=== PATIENT | male | born 1950 | race Caucasian/White ===

== ENCOUNTER 2017-10-07 13:35 | Outpatient (CLI) | payer MEDICARE | END 2017-10-07 13:36 | disposition home or self-care (01) | LOC: BICMRI 13:35 | PROVIDERS: ATTEND Family Medicine | DX: M51.16 Intervertebral disc disorders with radiculopathy, lumbar region (principal); M51.87 Other intervertebral disc disorders, lumbosacral region; M48.061 Spinal stenosis, lumbar region without neurogenic claudication; M99.83 Other biomechanical lesions of lumbar region | CPT/HCPCS: 72148 ==

== ENCOUNTER 2017-12-20 11:15 | Outpatient (CLI) | payer MEDICARE ==
[2017-12-20 12:36] LABS: Prothrombin Time 13.3 SEC (12.0-14.7)
[2017-12-20 12:37] LABS: PTT 28.1 SEC (22.9-36.1)
[2017-12-20 12:38] LABS: Hemoglobin 14.5 g/dL (14.0-18.0); Mean Corpuscular HGB CONC 33.6 g/dL (32.0-36.0); Mean Corpuscular Hemoglobin 31.7 pg (27.0-31.0); Mean Corpuscular Volume 94.3 fL (78.0-98.0); Mean Platelet Volume 6.7 fL (7.4-10.4); Platelet Count 132 thou/uL (130-400); RBC Distribution Width 12.3 % (11.5-14.5); Red Blood Cell (RBC) Count 4.57 mill/uL (4.70-6.10); White Blood Cell (WBC) Count 16.4 thou/uL (4.8-10.8)
[2017-12-20 12:57] LABS: Anion Gap 10 mmol/L (10-20); BUN (Urea Nitrogen) 14 mg/dL (8.4-25.7); Calc. Creatinine Clearance 0 mL/min (70-130); Carbon Dioxide 25 mmol/L (23-31); Chloride 107 mmol/L (98-107); Estimated GFR-MDRD 72; Glucose 98 mg/dL (80-115); Sodium 138 mmol/L (136-145)
--- NOTE | 2017-12-21 12:05 | EKG ---
Test Reason : Blood Pressure : / mmHG Vent. Rate : 076 BPM Atrial Rate : 076 BPM P-R Int : 154 ms QRS Dur : 078 ms QT Int : 414 ms P-R-T Axes : 051 023 031 degrees QTc Int : 465 ms Normal sinus rhythm Normal ECG When compared with ECG of 07-JUN-2012 16:32, No significant change was found Confirmed by SARAH WILDE ([id number]) on 12/21/2017 12:05:17 PM Referred By: MICHEAL Confirmed By:SARAH WILDE
== END 2017-12-20 11:16 | disposition home or self-care (01) ==
LOC: LABBT 11:15
PROVIDERS: ATTEND Surgery
DX: Z01.812 Encounter for preprocedural laboratory examination (principal); M51.16 Intervertebral disc disorders with radiculopathy, lumbar region
CPT/HCPCS: 80048; 85027; 85610; 85730; 93005; 93010

== ENCOUNTER 2017-12-27 11:44 | Day surgery (SDC) | payer MEDICARE ==
[2017-12-20 11:35] VITALS: BMI 29.1
[2017-12-27] MEDS ORDERED: CEFAZOLIN/Water 2 GM/20 ML SYRINGE ONE (12:28)
[2017-12-27] MEDS ORDERED: Glycopyrrolate 0.2 MG/ML 5 ML SYRINGE ONE (13:50)
[2017-12-27] MEDS ORDERED: ePHEDrine/0.9% NaCl/PF SYRINGE 50 mg/10 ml ONE (13:50)
[2017-12-27] MEDS ORDERED: Ondansetron HCl/PF 4 MG/2 ML Vial ONE (13:50)
[2017-12-27] MEDS ORDERED: Lidocaine 1% PF 5 ML VIAL ONE (13:50)
[2017-12-27] MEDS ORDERED: PROPOFOL 200 MG/20 ML VIAL ONE (13:50)
[2017-12-27] MEDS ORDERED: PHENYLEPHRINE-NS 100 MCG/ML 10 ML SYRINGE ONE (13:50)
[2017-12-27] MEDS ORDERED: Thrombin 5000 UNITS/5 ML VIAL ONE (14:14)
[2017-12-27] MEDS ORDERED: Bacitracin Zinc Ointment 30 gm TUBE ONE (14:14)
[2017-12-27] MEDS ORDERED: Sodium Chloride 0.9% 10 ML ONE (14:14)
[2017-12-27] MEDS ORDERED: Midazolam HCl 2 mg/2 ml Vial ONE (15:16)
[2017-12-27] MEDS ORDERED: Fentanyl 100 MCG/2 ML VIAL ONE ×7 (15:24→21:21)
[2017-12-27] MEDS ORDERED: Promethazine HCl 25 MG/ML VIAL IM PRN ×2 (18:18→18:22)
[2017-12-27] MEDS ORDERED: Mag-Al 1200 mg/1200 mg/30 ML UDCUP PO PRN (18:18)
[2017-12-27] MEDS ORDERED: tiZANidine HCl 4 MG TAB PO PRN (18:18)
[2017-12-27] MEDS ORDERED: Acetaminophen 325 MG TAB PO PRN (18:18)
[2017-12-27] MEDS ORDERED: Bisacodyl 10 MG SUPP PR PRN (18:18)
[2017-12-27] MEDS ORDERED: Fleet Enema 133 ML BOT PR PRN (18:18)
[2017-12-27] MEDS ORDERED: traMADol HCl 50 MG TAB PO PRN (18:18)
[2017-12-27] MEDS ORDERED: Acetaminophen/Codeine 30-300mg Tablet PO PRN (18:18)
[2017-12-27] MEDS ORDERED: Milk Of Magnesia 30 ML UDCUP PO PRN (18:18)
[2017-12-27] MEDS ORDERED: Loratadine 10 MG TAB PO PRN (18:20)
[2017-12-27] MEDS ORDERED: Promethazine HCl 25 MG/ML VIAL SLOW IVP PRN (18:22)
[2017-12-27] MEDS ORDERED: HYDROmorphone 2 MG/ML VIAL SLOW IVP PRN (18:22)
[2017-12-27] MEDS ORDERED: Ondansetron HCl/PF 4 MG/2 ML Vial IVP PRN (18:22)
[2017-12-27] MEDS ORDERED: Allopurinol 300 MG TAB PO SCH (21:00)
[2017-12-27] MEDS ORDERED: DULoxetine 30 MG CAP PO SCH (21:00)
[2017-12-27] MEDS ORDERED: Tamsulosin HCl 0.4 MG CAP PO SCH (21:00)
[2017-12-27] MEDS: Sodium Chloride 0.9% 1,000 ML IV SCH (22:43)
[2017-12-27] MEDS: CEFAZOLIN/Water 2 GM/20 ML SYRINGE SLOW IVP SCH (23:04)
--- NOTE | 2017-12-27 23:09 | OP ---
OR: 12 WOUND: Type 1 wound. SURGEON: Juan Ambrosio M.D. WAVE SOLDER OFFBEARER: Jay Mixon PA-C. PREPROCEDURE DIAGNOSES: Left L3 and left L4 radiculopathy with disk extrusion, left L3-L4 lateral re cess stenosis, left L2-L3. POSTPROCEDURE DIAGNOSES: Left L3 and left L4 radiculopathy with disk extrusion, left L3-L4 lateral r ecess stenosis, left L2-L3. PROCEDURES: 1. Left L2-L3 hemilaminotomy, foraminotomy, exploration of disk space. 2. Left L3-L4 hemilaminotomy, foraminotomy, diskectomy. 3. Use of operative microscope for microdissection. DESCRIPTION OF PROCEDURE: After informed consent was obtained from the patient, the patient brought to OR 12. Proper patient pause and the identification was carried out. He was placed under excellen t general endotracheal anesthesia and positioned prone on the OR table. appropriate points were padd ed. We identified the dorsal spines of the L2, L3, L4 segments. This region was sterilely cleansed, prepared, and draped. Proper patient pause and identification was carried out. The wound was then opened with a combination of sharp, monopolar, and blunt dissection. The left L2-L3, left L3-L4 segm ents were exposed. Localization film confirmed our area of interest. We then performed left L2-L3 a nd left L3-L4 hemilaminotomies and foraminotomies. Microscope was brought in for microdissection. I explored the left L2-L3 disk space and did not feel any disk material needed to be removed. We had excellent decompression at left L2 and left L3 nerve roots already with removal of the yellow ligamen t and the medial facetectomy and then identified the left L3-L4 segment hemilaminotomy, and removal o f the yellow ligament was completed. Retraction of the left L4 nerve root occurred and diskectomy wa s performed there. Disk material was removed with excellent decompression with left L3 and left L4 n erve roots. Copious irrigation occurred throughout. The wound was then maximally hemostased through out and then closed in anatomic layers following sprinkling of vancomycin powder. Patient then emerg ed from anesthesia.
[2017-12-28] MEDS: CEFAZOLIN/Water 2 GM/20 ML SYRINGE SLOW IVP SCH (03:46)
[2017-12-28] MEDS: HYDROcodone/Acetaminophen 7.5/325 mg Tablet PO PRN ×2 (04:45→08:41)
[2017-12-28] MEDS ORDERED: Levothyroxine Sodium 100 MCG TAB PO SCH (06:00)
[2017-12-28 07:33] VITALS: BP 104/65; TEMP 98.1
[2017-12-28] MEDS: Sodium Chloride 0.9% 1,000 ML IV SCH (08:43)
[2017-12-28] MEDS ORDERED: Prevnar 13-Val Conj/PF 0.5 ML SYRINGE IM ONE (09:00)
[2017-12-28] MEDS ORDERED: Rosuvastatin 20 MG TAB PO SCH (09:00)
--- NOTE | 2017-12-28 09:52 | PRG ---
DATE OF SERVICE: 12/28/2017 Mr. Arroyo is postoperative day 1 from L2-L3, left L3-L4 decompression diskectomy. He is doing well with improvement in his left leg pain. He has good strength in his lower extremity myotomes, specif ically, in his left dorsiflexion. His strength is intact. There have been no wound issues. We will plan for dismissal. We went over both intra and postoperative issues.
== END 2017-12-28 09:56 | disposition home or self-care (01) ==
LOC: SDC 11:44 → SURG A 22:02 → UNDOADMOB 22:02 → SDC 12-28 09:56 → UNDODISOB 12-28 09:56
PROVIDERS: ATTEND Surgery
PROC: 0ST20ZZ Resection of Lumbar Vertebral Disc, Open Approach (ICD-10-PCS; principal; 2017-12-27)
PROC: 01NB0ZZ Release Lumbar Nerve, Open Approach (ICD-10-PCS; 2017-12-27)
DX: M48.061 Spinal stenosis, lumbar region without neurogenic claudication (principal); M51.16 Intervertebral disc disorders with radiculopathy, lumbar region; Z88.8 Allergy status to other drugs, medicaments and biological substances; Z79.899 Other long term (current) drug therapy
CPT/HCPCS: 76001; 90471; 90670; 96374; A4216; G0009; J2001; J2250; J2405; J2704; J3010; J3370; J3490

== ENCOUNTER 2018-06-12 06:49 | Outpatient (CLI) | payer MEDICARE ==
[2018-06-12 15:00] LABS: Mean Corpuscular Volume 93.7 fL (78.0-98.0); Platelet Count 154 thou/uL (130-400); RBC Distribution Width 12.7 % (11.5-14.5); Red Blood Cell (RBC) Count 4.51 mill/uL (4.70-6.10); White Blood Cell (WBC) Count 14.8 thou/uL (4.8-10.8)
[2018-06-12 15:25] LABS: Anion Gap 14 mmol/L (10-20); BUN (Urea Nitrogen) 18 mg/dL (8.4-25.7); Calc. Creatinine Clearance 0 mL/min (70-130); Calcium 9.2 mg/dL (7.8-10.44); Carbon Dioxide 23 mmol/L (23-31); Chloride 108 mmol/L (98-107); Estimated GFR-MDRD 63; Glucose 78 mg/dL (80-115); Sodium 141 mmol/L (136-145)
[2018-06-12 16:35] LABS: Eosinophils 1 % (0-10); Lymphocytes 28 % (21-51); MDiff Complete? YES; Monocytes 5 % (0-10); Neutrophil 61 % (42-75); Platelet Morphology Comment Appears Adequate; RBC Morphology Normal; Reactive Lymphocytes 5 % (0-10)
--- NOTE | 2018-06-13 09:23 | EKG ---
Test Reason : Blood Pressure : / mmHG Vent. Rate : 076 BPM Atrial Rate : 076 BPM P-R Int : 156 ms QRS Dur : 082 ms QT Int : 394 ms P-R-T Axes : 047 016 034 degrees QTc Int : 443 ms Normal sinus rhythm Normal ECG When compared with ECG of 20-DEC-2017 12:06, No significant change was found Confirmed by DR. Bibi DICKERSON ([id number]) on 06/13/2018 9:22:30 AM Referred By: IERO Confirmed By:DR. Bibi DICKERSON
== END 2018-06-12 06:50 | disposition home or self-care (01) ==
LOC: LABBT 06:49
PROVIDERS: ATTEND Orthopaedic Surgery
DX: Z01.818 Encounter for other preprocedural examination (principal); S83.206A Unspecified tear of unspecified meniscus, current injury, right knee, initial encounter
CPT/HCPCS: 80048; 85025; 93005; 93010

== ENCOUNTER 2018-06-14 05:54 | Day surgery (SDC) | payer MEDICARE ==
[2018-06-12 13:52] VITALS: BMI 29.4
[2018-06-14] MEDS ORDERED: CEFAZOLIN 2 GM/50 ML BAG ONE (06:13)
[2018-06-14] MEDS ORDERED: PROPOFOL 20 ML ONE (06:32)
[2018-06-14] MEDS ORDERED: Fentanyl 100 MCG/2 ML VIAL ONE (07:48)
[2018-06-14] MEDS ORDERED: Midazolam HCl 2 mg/2 ml Vial ONE (07:48)
[2018-06-14] MEDS ORDERED: Bupivacaine HCl 0.5%/Epinephrine 1:200,000/PF 30 ml Vial ONE (10:37)
[2018-06-14] MEDS ORDERED: Lidocaine 2% w/Epinephrine 1:200K 20 ML VIAL ONE (10:37)
[2018-06-14] MEDS ORDERED: Dexamethasone 20 MG/5 ML VIAL ONE (10:45)
[2018-06-14] MEDS ORDERED: PROPOFOL 200 MG/20 ML VIAL ONE (10:45)
[2018-06-14] MEDS ORDERED: ePHEDrine 50 MG/ML VIAL ONE (10:45)
[2018-06-14] MEDS ORDERED: PHENYLEPHRINE-NS 100 MCG/ML 10 ML SYRINGE ONE (10:45)
[2018-06-14] MEDS ORDERED: Ondansetron PF 4 MG/2 ML Vial ONE (10:45)
[2018-06-14] MEDS ORDERED: Lidocaine 1% PF 5 ML VIAL ONE (10:45)
--- NOTE | 2018-06-14 14:13 | OP ---
DATE OF PROCEDURE: 06/14/2018 PREOPERATIVE DIAGNOSIS: Right knee medial meniscus tear. POSTOPERATIVE DIAGNOSES: 1. Right knee medial meniscus tear. 2. 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 PROCEDURES PERFORMED: Right knee arthroscopy with partial medial meniscectomy, debridement and shaving of unstable chondral flaps medial femoral condyle. RESEARCH ASSISTANT PROFESSOR: None. BLOOD LOSS: Minimal. COMPLICATIONS: None. ANESTHESIA: The patient had a local knee block as well as general anesthetic. DISPOSITION: He went to recovery room in stable condition. INDICATIONS: Carlito is a 67-year-old male, who is very active and has been having problems with pain, swelling, and catching of the knee. He has failed nonoperative knee treatment and at this time, wishes to have surgery. DESCRIPTION OF PROCEDURE: After all appropriate consent forms were explained and signed, he was taken to the operative room and at this time was given general anesthetic. Once the level of anesthesia was appropriate, a tourniquet was placed on the right thigh and leg was placed in arthroscopic leg gaxiola. It was then prepped and draped in standard surgical fashion. The limb was then exsanguinated and tourniquet taken up to 300 mmHg. Inferolateral portal was established. Scope was placed into the knee joint. A needle localization technique was then used to make a medial working portal. Diagnostic arthroscopy commenced in the notch. The ACL and PCL were probed and found to be intact. There was a tiny osteophyte at the base of the ACL. This was left alone since it did not impinge in full extension. Medial compartment was evaluated and showed the patient to have an area of grade 2 and 3 chondromalacia with some unstable chondral flaps. The chondral flaps were taken down. Medial meniscus was then evaluated, found to have a large complex tear of the posterior horn medial meniscus with a large flap component sitting in the meniscal tibial recess and all degenerative torn tissue was removed with a biter and shaver. All normal tissue was left alone. At this time, we turned our attention to the lateral compartment. Popliteus, meniscus, femur, and tibia were all found to be in normal condition. Gutters were swept through and were clean. Patellofemoral joint was in excellent condition as well. At this time, scope was removed, knee was drained, and each portal was closed with a simple nylon stitch. Bulky sterile dressing was then applied. Tourniquet was let down. His toes pinked up nicely. He was then awakened. He was taken to the recovery room in stable condition. All counts were correct at the end of the case and he received preoperative IV antibiotics. Job ID: [id number]
== END 2018-06-14 10:42 | disposition home or self-care (01) ==
LOC: SDC 05:54
PROVIDERS: ATTEND Orthopaedic Surgery
PROC: 0SBC4ZZ Excision of Right Knee Joint, Percutaneous Endoscopic Approach (ICD-10-PCS; principal; 2018-06-14)
DX: S83.231A Complex tear of medial meniscus, current injury, right knee, initial encounter (principal); M94.261 Chondromalacia, right knee; E03.9 Hypothyroidism, unspecified; F32.9 Major depressive disorder, single episode, unspecified; K21.9 Gastro-esophageal reflux disease without esophagitis; M10.9 Gout, unspecified; Z88.1 Allergy status to other antibiotic agents; Z88.8 Allergy status to other drugs, medicaments and biological substances; Z79.51 Long term (current) use of inhaled steroids; Z79.899 Other long term (current) drug therapy; Z98.890 Other specified postprocedural states
CPT/HCPCS: J2250; J2704; J3010

== ENCOUNTER 2022-08-04 07:20 | Outpatient (CLI) | payer MEDICARE | END 2022-08-04 07:21 | disposition home or self-care (01) | LOC: BICULT 07:20 | PROVIDERS: ATTEND Internal Medicine Medical Oncology | DX: R16.1 Splenomegaly, not elsewhere classified (principal); R59.1 Generalized enlarged lymph nodes | CPT/HCPCS: 76705 ==

== ENCOUNTER 2022-11-11 07:35 | Outpatient (CLI) | payer MEDICARE ==
[2022-11-11] MEDS ORDERED: Lidocaine 1% PF 5 ML VIAL ONE (08:00)
[2022-11-11] MEDS ORDERED: Iopamidol 300 61% 50 ML VIAL (IV ROOM USE) FS ONE (08:00)
[2022-11-11] MEDS ORDERED: EPINEPHrine 1 mg/ml MDV (1ml Charge) ONE (08:00)
[2022-11-11] MEDS ORDERED: Gadobenate 529 MG/1 ML (20ML SDV) ONE (08:00)
== END 2022-11-11 07:36 | disposition home or self-care (01) ==
LOC: RAD 07:35
PROVIDERS: ATTEND Orthopaedic Surgery
DX: M24.811 Other specific joint derangements of right shoulder, not elsewhere classified (principal); M75.111 Incomplete rotator cuff tear or rupture of right shoulder, not specified as traumatic
CPT/HCPCS: 23350; A9577; J0171; Q9967

== ENCOUNTER 2023-06-03 08:25 | Outpatient (CLI) | payer MEDICARE | END 2023-06-03 08:26 | disposition home or self-care (01) | LOC: LABBT 08:25 | PROVIDERS: ATTEND Orthopaedic Surgery | DX: Z01.810 Encounter for preprocedural cardiovascular examination (principal); S46.011A Strain of muscle(s) and tendon(s) of the rotator cuff of right shoulder, initial encounter | CPT/HCPCS: 93005; 93010 ==

== ENCOUNTER 2023-06-08 05:47 | Day surgery (SDC) | payer MEDICARE ==
[2023-06-03 09:28] VITALS: BMI 30.3
[2023-06-03 09:52] LABS: Bilirubin Neg (Negative); Blood, Urine Negative (Negative); Glucose, Urine (Dipstick) Normal (Negative); Ketone, Urine Negative (Negative); Leukocyte Negative (Negative); Nitrite Negative (Negative); Protein, Urine (Dipstick) 15 mg/dl (Neg-Trace); Specific Gravity, Urine 1.015 (1.005-1.030); Urobilinogen Normal mg/dL (Less than 2); pH, Urine 6.5 (5.0-9.0)
[2023-06-03 09:54] LABS: Clarity Clear (Clear)
[2023-06-03 09:57] LABS: Hematocrit 42.1 % (38.8-50.0); Mean Corpuscular HGB CONC 33.3 g/dL (32.0-36.0); Mean Corpuscular Volume 93.1 fl (81.2-95.1); Mean Platelet Volume 9.2 fl (7.4-10.4); Platelet Count 122 10x3/uL (150-450); RBC Distribution Width 13.7 % (11.5-14.5); Red Blood Cell (RBC) Count 4.52 10x6/uL (4.32-5.72)
[2023-06-03 10:04] LABS: Prothrombin Time 10.8 sec (9.5-12.1)
[2023-06-03 10:08] LABS: Anion Gap 13 mmol/L (10-20); BUN (Urea Nitrogen) 17 mg/dL (8.4-25.7); Calc. Creatinine Clearance 0 mL/min (70-130); Calcium 8.6 mg/dL (7.8-10.44); Carbon Dioxide 26 mmol/L (23-31); Chloride 105 mmol/L (98-107); Estimated GFR 67; Glucose 105 mg/dL (83-110); Potassium 4.2 mmol/L (3.5-5.1); Sodium 140 mmol/L (136-145)
[2023-06-03 10:18] LABS: Lymphocytes 56 % (21-51); Monocytes 9 % (0-10); Neutrophil 32 % (42-75); Reactive Lymphocytes 3 % (0-10)
[2023-06-03 10:19] LABS: RBC Morph Comment Within Normal Limits
[2023-06-03 10:20] LABS: Platelet Adequacy Comment Appears Decreased
[2023-06-08] MEDS ORDERED: Vancomycin (BATCH) 1.5 GM/300 ML BAG ONE (06:03)
[2023-06-08] MEDS ORDERED: PROPOFOL 20 ML ONE (06:48)
[2023-06-08] MEDS ORDERED: fentaNYL PF 100 MCG/2 ML SYRINGE ONE ×2 (06:48→08:05)
[2023-06-08] MEDS ORDERED: Midazolam HCl 2 mg/2 ml Vial ONE (06:48)
[2023-06-08] MEDS ORDERED: Lidocaine 1% PF 5 ML VIAL ONE (06:49)
[2023-06-08] MEDS ORDERED: Rocuronium Bromide 10 MG/ML (10ML VIAL) ONE (06:49)
[2023-06-08] MEDS ORDERED: Sodium Chloride 0.9% 100 ML ONE (07:14)
[2023-06-08] MEDS ORDERED: CEFAZOLIN 2 GM VIAL ONE (07:14)
[2023-06-08] MEDS ORDERED: traMADol HCl 50 MG TAB PO PRN ×2 (08:00)
[2023-06-08] MEDS ORDERED: Zolpidem Tartrate 5 MG TAB PO PRN (08:00)
[2023-06-08] MEDS ORDERED: HYDROcodone/Acetaminophen 10/325 mg Tablet PO PRN ×2 (08:00)
[2023-06-08] MEDS ORDERED: Ropivacaine 0.2% 550 ML 550 ML NERVE BLCK SCH (08:00)
[2023-06-08] MEDS ORDERED: Ondansetron PF 4 MG/2 ML Vial IVP PRN (08:00)
[2023-06-08] MEDS ORDERED: Promethazine HCl 25 MG/ML VIAL IM PRN (08:00)
[2023-06-08] MEDS ORDERED: ePHEDrine Sulfate 50 MG/10 ML VIAL ONE ×2 (08:16→09:05)
[2023-06-08] MEDS ORDERED: PHENYLEPHRINE-NS 100 MCG/ML 10 ML SYRINGE ONE (08:16)
[2023-06-08] MEDS ORDERED: Ropivacaine 0.2% HCl/PF 20 ML ONE (08:19)
[2023-06-08] MEDS ORDERED: Ropivacaine 0.5% HCl/PF (150 MG/30 ML VIAL) ONE (08:19)
[2023-06-08] MEDS ORDERED: Phenylephrine 40 MG/NS 250 ML 250 ML ONE (08:33)
[2023-06-08] MEDS ORDERED: Ketorolac Tromethamine 30 MG (1 mL) VIAL ONE (08:54)
[2023-06-08] MEDS ORDERED: Dexamethasone 4 mg/ml Vial ONE (08:54)
[2023-06-08] MEDS ORDERED: Ondansetron PF 4 MG/2 ML Vial ONE ×2 (08:54→11:19)
[2023-06-08] MEDS ORDERED: NEOSTIGMINE 3 MG/3 ML SYR 3 MG/3 ML SYRINGE ONE (09:57)
[2023-06-08] MEDS ORDERED: Glycopyrrolate 0.2 MG/ML 5 ML SYRINGE ONE (09:57)
[2023-06-08] MEDS ORDERED: Ketorolac Tromethamine 30 MG (1 mL) VIAL IVP SCH (12:00)
== END 2023-06-08 12:00 | disposition home or self-care (01) ==
LOC: SDC 05:47
PROVIDERS: ATTEND Orthopaedic Surgery
PROC: 0RNJ0ZZ Release Right Shoulder Joint, Open Approach (ICD-10-PCS; principal; 2023-06-08)
DX: S46.011S Strain of muscle(s) and tendon(s) of the rotator cuff of right shoulder, sequela (principal); E03.9 Hypothyroidism, unspecified; M24.811 Other specific joint derangements of right shoulder, not elsewhere classified; F32.A Depression, unspecified; K21.9 Gastro-esophageal reflux disease without esophagitis; M10.9 Gout, unspecified; Z88.8 Allergy status to other drugs, medicaments and biological substances; Z88.1 Allergy status to other antibiotic agents; Z79.890 Hormone replacement therapy; Z79.899 Other long term (current) drug therapy
CPT/HCPCS: 23420; 80048; 81003; 85025; 85610; 86850; 86900; 86901; A4306; C1713 ×3; J3370; J1100; J1885; J2250; J2405; J2704; J2795; J3490